=== PATIENT | female | born 1940 | race Caucasian/White ===

== ENCOUNTER → 2024-06-16 10:01 | Outpatient (REF) | payer MEDICARE, OTHER, SELFPAY | LOC: RCS 10:01 | PROVIDERS: ATTENDING PHYSICIAN Internal Medicine Cardiovascular Disease; FAMILY PHYSICIAN Internal Medicine Geriatric Medicine | DX: I48.91 Unspecified atrial fibrillation (principal); I48.0 Paroxysmal atrial fibrillation; R07.9 Chest pain, unspecified; R06.02 Shortness of breath | CPT/HCPCS: 93306 ==

== ENCOUNTER → 2024-06-27 07:39 | Outpatient (REF) | payer MEDICARE, OTHER, SELFPAY | LOC: HWRCS 07:39 | PROVIDERS: ATTENDING PHYSICIAN Internal Medicine Cardiovascular Disease; FAMILY PHYSICIAN Internal Medicine Geriatric Medicine | DX: J98.4 Other disorders of lung (principal); I25.10 Atherosclerotic heart disease of native coronary artery without angina pectoris; R07.9 Chest pain, unspecified | CPT/HCPCS: 78452; 93017; A9500; J2785 ==

== ENCOUNTER 2024-11-26 13:26 | Emergency (ER) | payer MEDICARE, OTHER, SELFPAY ==
[2024-11-26 13:29] VITALS: BP 141/76
[2024-11-26] MEDS: ADACEL 0.5 ML IM (15:38)
[2024-11-26] MEDS: VIBRAMYCIN 100 MG PO (15:38)
--- NOTE | 2024-11-26 16:52 | ED.GENMED ---
History of Present Illness
General
Chief Complaint: Skin Problem
Source: patient
Exam Limitations: none
Time Seen by Provider: 11/26/24 13:40
Nursing documentation reviewed up to this point in time: agreed with
History of Present Illness
History of Present Illness:
see MDM
Past History
Past History
ED Past Medical History: Arrthythmia, COPD, HTN, Hypercholesterolemia and Other (asthmatic bronchitis)
Social History
Tobacco: Former smoker
Alcohol: None
Drug: None
Personal: Single
Review of Systems
Review of Systems
Allergies reviewed?: Yes
All Other Systems: Not applicable
Phy Exam
Physical Exam
Physical Exam:
GENERAL: Alert , in no apparent distress, comfortable at rest
HEAD: NCAT
CV: 2+ DP pulses
NEUROLOGICAL: Alert and oriented, no focal neuro deficits, , 5/5 strength, sensation intact, ambulation slight limp right leg
SKIN: Warm and dry,
irregular shaped long skin tear to R anterior mid lower leg approx 12 cm long with small hematoma int he center of the wound on the medial edge and otherwise it is not well approxmiated but superficial
there is surrounding erythema down to ankle and above the wound toward the prox tib but not posteriorly(not circumferentially)
MUSCULOSKELETAL: full nakle and knee ROM
tender to touch to the anterior RLE; able to walk normally;
PSYCH: Normal and appropriate interaction.
Course
Orders/Labs/Results
Orders:
Orders
11/26/24 14:25
CR Leg Tibia/fibula Right 2 Vw Urgent
Comment:
Reason For Exam: right LE wound, fall
11/26/24 15:28
Doxycycline [Vibramycin] 100 mg PO NOW STA
Tetanus/Diphth/Acelpertussis [Adacel] 0.5 ml IM .ONCE ONE
Vital Signs
Initial and Last Documented VS:
Initial Vital Signs
Temp Pulse Resp BP Pulse Ox
36.7 C 114 18 141/76 96
11/26/24 13:29 11/26/24 13:29 11/26/24 13:29 11/26/24 13:11/26/24 13:29
Last Documented Vital Signs
Temp Pulse Resp BP Pulse Ox
36.7 C 89 18 141/76 96
11/26/24 13:29 11/26/24 15:01 11/26/24 14:03 11/26/24 13:29 11/26/24 15:01
MDM/Problems Addressed
Differential Diagnosis Includes:
see MDM
MDM/Problems Addressed:
Note:
CHIEF COMPLAINT(S)
Concern about puckering and healing of a leg wound.
HISTORY OF PRESENT ILLNESS
The patient presented with concerns regarding the appearance and healing process of a wound on the leg. The injury occurred on 3 days ago when the patient fell while pushing a grocery cart. During the fall, boxes in the cart shifted, causing it to
tip over, and the patient fell, impacting the curb. she had wound to RLE anteriorly that was a skin tear; The patient initially managed the wound with compression and application of a sterile iodine swab. The wound is described as tender and has
minimal discomfort, similar to plantar fasciitis, especially after being seated or in the morning. Despite the injury being several days old, and featuring prominence and discoloration, the patient expressed concern about the puckering of the skin
around the wound. There are no major signs of pain, just mild tenderness upon movement.
PHYSICAL EXAM
see above
- Nursing notes reviewed and vital signs reviewed.
PLAN
- Order an X-ray to assess the underlying bone structure due to tenderness.
- Initiate antibiotic treatment to prevent or address any potential infection.
- Referral to a wound care center for specialized management and to facilitate healing.
DIFFERENTIAL DIAGNOSIS
The Differential Diagnosis includes, in no particular order and is not limited to:
1. Contusion with edema
2. Skin infection (Cellulitis)
3. Superficial wound infection
4. Venous stasis dermatitis
5. Hematoma
6. Fracture or bone injury (requiring X-ray confirmation)
7. Complicated wound healing
8. Tendon injury or strain
9. Subcutaneous fat necrosis
10. Ligament strain due to fall
84-year-old female after a mechanical fall with a skin tear to her right lower extremity 3 to 4 days ago now with redness around the wound and some puckering to the skin flap which is open and there is a small hematoma in the center but it is dry
not using. The skin tear was gaping But because her skin was so thin she decided not to come in. The bleeding has been controlled. She has been providing herself her own wound care at home.
pt is able to weight bear
tetanus not known but updated here
xrays were indep reviewed, neg fo rfx
with the redness, will initiate abx
wound care center recommended for f/u for better wound healing
*Pulse Oximetry
SaO2: 96
Oxygen Mode of Delivery: Room air
Patient hypoxic: no (96)
*Critical Care Note
Total Time (30-74mins, 75-104mins- exclusive of procedures): Not Applicable
ED Attending Note
-
Portions of this chart may have been created with voice recognition software.� Occasional wrong word or��sound alike� substitutions may have occurred due to the inherent limitations of voice recognition software.
Discharge Plan
Departure
Patient Disposition: Home (Routine Discharge)
Date of Disposition: 11/26/24
Time of Disposition: 15:28
Patient with high blood pressure during this ER visit?: Yes
Condition: Fair
Covid-19: Not Applicable
Discharge Problem:
Cellulitis
Instructions: Wound Care (DC), Cellulitis (skin infection) in adults - ED discharge instructions
Prescriptions:
New
doxycycline hyclate 100 mg capsule
100 mg PO BID Qty: 14 0RF
No Action
cyanocobalamin (vitamin B-12) 1,000 MCG tablet
1,000 mcg PO DAILY
montelukast 10 MG tablet
10 mg PO DAILY
cholecalciferol (vitamin D3) [Vitamin D3] 400 UNITS tablet
1,000 units PO DAILY
cyclosporine [Restasis] 10 DROPS dropperette
1 drp BOTH EYES BID
ProAir RespiClick 90 MCG aerosol powdr breath activated
1 puff IH PRN PRN (Reason: shortness of breath)
biotin 1,000 MCG tablet,chewable
1,000 mcg PO DAILY
irbesartan 150 MG tablet
150 mg PO HS 0RF
levalbuterol HCl [Xopenex] 0.63 mg/3 mL Solution For Nebulization
0.63 mg INHALATION PRN PRN (Reason: SOB, Wheezing)
simvastatin 10 mg Tablet
10 mg PO DAILY
loratadine 10 mg Tablet
10 mg PO DAILY
diltiazem HCl 120 mg Tablet Extended Release 24 Hr
120 mg PO DAILY
Eliquis 5 mg Tablet
5 mg PO BID
Flovent HFA
BID
magnesium 250 mg Tablet
250 mg PO DAILY
melatonin 5 mg Tablet
5 mg PO HS PRN (Reason: sleep)
PreserVision AREDS-2 250-90-40-1 mg Capsule
1 cap PO DAILY
Referrals:
Luiza Hazel MD [Family Provider, Internal Medicine]
[facility] - Follow up in 5-7 days
Activity Restrictions/Additional Instructions:
Change the dressing once a day after cleaning with mild soap and water. Apply Neosporin and a nonstick dressing. Take doxycycline twice a day for 7 days and watch for extension of the redness outside of the line drawn and if that is happening you
should follow-up with your doctor or return to the emergency department. Also return for fever, chills, worsening pain inability to walk, vomiting or diarrhea etc. Otherwise please call the wound care center for follow-up to help with healing.
Your x-ray did not show any signs of trauma to the bone
Interventions
Interventions:
*Risk Screen - Suicide Last Done: 11/26/24 13:29
*General Assessment Last Done: 11/26/24 13:29
*Neglect/Abuse Screening Last Done: 11/26/24 13:29
*ED- Fall Risk Assessment Last Done: 11/26/24 15:59
*ED COVID-19 Vaccine History Last Done: 11/26/24 13:35
*Nursing Disposition Last Done: 11/26/24 15:59
ED-Skin Assessment Last Done: 11/26/24 13:40
Discharge Date and Time
Discharge Date/Time: 11/26/24 15:59
Print Language: LAO
== END 2024-11-26 15:59 | disposition home or self-care (01) ==
LOC: EMR 13:26
PROVIDERS: EMERGENCY PHYSICIAN Emergency Medicine; FAMILY PHYSICIAN Internal Medicine Geriatric Medicine
DX: L03.115 Cellulitis of right lower limb (principal); Z23 Encounter for immunization; J44.89 Other specified chronic obstructive pulmonary disease; I10 Essential (primary) hypertension; E78.00 Pure hypercholesterolemia, unspecified; Z87.891 Personal history of nicotine dependence
CPT/HCPCS: 99283; 90471; 73590; 90715

== ENCOUNTER → 2024-11-28 12:29 | Outpatient (REF) | payer MEDICARE, OTHER, SELFPAY | LOC: WOUND 12:29 | PROVIDERS: ATTENDING PHYSICIAN Surgery | DX: L97.213 Non-pressure chronic ulcer of right calf with necrosis of muscle (principal); S81.811A Laceration without foreign body, right lower leg, initial encounter; I48.91 Unspecified atrial fibrillation; Z79.01 Long term (current) use of anticoagulants; Z87.891 Personal history of nicotine dependence; W01.198A Fall on same level from slipping, tripping and stumbling with subsequent striking against other object, initial encounter | CPT/HCPCS: 99203 ==

== ENCOUNTER 2024-12-05 14:10 | Inpatient (IN) | payer MEDICARE, OTHER, SELFPAY ==
[2024-12-05 09:48] VITALS: BP 137/69
[2024-12-05 10:10] LABS: Hematocrit 32.3 % (37.0-47.0); Hemoglobin 10.4 g/dL (12.0-16.0); Mean Corp Hgb Conc. 32.2 g/dL (33.0-37.0); Mean Corpuscular Volume 89.2 fL (81.0-99.0); Nucleated Red Blood Cells % 0 %; Platelet Count 182 10^3/uL (130-400); Red Cell Dist. Width 14.6 % (11.5-14.5)
[2024-12-05 10:30] LABS: ALT (SGPT) 23 U/L (0-35); AST (SGOT) 28 U/L (14-36); Albumin 4.1 g/dl (3.5-5.0); Alkaline Phosphatase 83 U/L (38-126); Blood Urea Nitrogen 23 mg/dl (7-17); Calcium 9.1 mg/dl (8.4-10.2); Carbon Dioxide 23 mmol/L (22-30); Chloride 109 mmol/L (98-107); Potassium 4.8 mmol/L (3.5-5.1); Sodium 139 mmol/L (135-145); Total Protein 7.1 g/dl (6.3-8.2); eGFR > 60.00
[2024-12-05 10:36] LABS: Glucose 126 mg/dl (70-99)
[2024-12-05 12:07] VITALS: BMI 23.8
--- NOTE | 2024-12-05 12:52 | ED.GENMED ---
History of Present Illness
General
Chief Complaint: Skin Problem
Source: patient
Exam Limitations: none
Time Seen by Provider: 12/05/24 11:40
Nursing documentation reviewed up to this point in time: agreed with
History of Present Illness
History of Present Illness:
Patient is an 84-year-old female with past medical history of A-fib on Eliquis, DVT asthma sent to the ER for evaluation from wound care. Patient was seen here 9 days ago November 26 for wound to right lower extremity. She was diagnosed with
cellulitis and placed on doxycycline. She complains of increasing redness to the area. She has been managed also by wound care. She had an appointment today and they sent her to the ER for evaluation of cellulitis with worsening redness. In
addition to the redness she complains of increasing swelling. Denies any fever/chills.
She is on eliquis however has not missed a dose.
Past History
Past History
ED Past Medical History: Arrthythmia, COPD, HTN, Hypercholesterolemia and Other (asthmatic bronchitis)
Social History
Tobacco: Former smoker
Alcohol: None
Drug: None
Personal: Single
Phy Exam
General Physical Exam
General Presentation: no apparent distress
General age: appears stated age
General Skin: warm and dry
General Habitus: normal
General Mental: alert
General Hydration: appears well hydrated
Neurological Exam
Neurological Exam: alert and oriented x3
Musculoskeletal Exam
Musculoskeletal Exam: other (right lower leg with open wound to right lower leg full thickness to subcutaneous tissue with surrounding erythema to right lower leg with swelling )
Skin Exam
Skin Exam: normal color and warm/dry
Psychiatric Exam
Psychiatric Exam: normal mood/affect
Course
Orders/Labs/Results
Orders:
Orders
12/05/24 09:56
Complete Blood Count/With Diff Urgent
Comprehensive Metabolic Panel Urgent
Lactic Acid Q4H
Comment: ON ICE, CANCEL 2ND ORDER IF FIRST LACTIC ACID LEVEL <2
12/05/24 10:20
Blood Culture Q20M
PRAFUL Source: Blood/Venous
Specimen Description:
Comment: Urgent from separate sites. If patient screens positive for possible sepsis
12/05/24 11:59
Lactic Acid Q4H
Comment: ON ICE, CANCEL 2ND ORDER IF FIRST LACTIC ACID LEVEL <2
Blood Culture Q20M
PRAFUL Source: Blood/Venous
Specimen Description:
Comment: Urgent from separate sites. If patient screens positive for possible sepsis
12/05/24 13:27
Vancomycin [Vancocin] 1,500 mg 0.9% Sodium Chloride 500 ml [Nss] 500 ml IV NOW
12/05/24 13:46
Admit/Transfer Patient As Directed
Co-Sign Provider:
Level of Care: Inpatient admission
Assign to:: Medical/Surgical
Physician / Group: isaiah denny
Diagnosis: RLE cellulitis failure outpatient ABX
Reason for Hospitalization: RLE cellulitis failure outpatient ABX
Expected length of stay greater than two midnights?: Yes
ELOS- Estimated Length of Stay in days: 3
I certify the patient meets the requirements for IP care: Yes
Code Status As Directed
Resuscitation Status: Full Code
12/05/24 13:52
PRN Pain Medication Management As Directed
May give lesser potent ordered pain med per pt: Yes
preference::
Protocol:: Medication orders for pain may be administered in a
manner that supports deferring to patient preference
when the pt is:
- Requesting an ordered lesser potent pain medication.
Least to most potent pain medications are defined
as: acetaminophen < NSAID < tramadol < opioids
(morphine, oxycodone, hydromorphone).
- Requesting a lesser dose of the same medication IF
ORDERED.
- Requesting a less intrusive route of administration
if both routes are prescribed by the provider (PO <
IV).
12/05/24 14:00
Flush (0.9% Sodium Chloride) [Flush (Nss)] See Dose Instructions IV PER PROTOCOL
Abnormal Lab Results
12/05/24
09:56
RBC 3.62 L 10^6/uL
(4.20-5.40)
Hgb 10.4 L g/dL
(12.0-16.0)
Hct 32.3 L %
(37.0-47.0)
MCHC 32.2 L g/dL
(33.0-37.0)
RDW 14.6 H %
(11.5-14.5)
MPV 10.6 H fL
(7.4-10.4)
Absolute Lymphs (auto) 0.9 L 10^3/uL
(1.2-3.4)
Lymphocytes % 11.4 L %
(20.5-51.1)
Chloride 109 H mmol/L
(98-107)
BUN 23 H mg/dl
(7-17)
Glucose 126 H mg/dl
(70-99)
12/05/24 09:56
12/05/24 09:56
Vital Signs
Initial and Last Documented VS:
Initial Vital Signs
Temp Pulse Resp BP Pulse Ox
98.0 F 97 18 137/69 98
12/05/24 09:48 12/05/24 09:48 12/05/24 09:48 12/05/24 09:48 12/05/24 09:48
Last Documented Vital Signs
Temp Pulse Resp BP Pulse Ox
98.0 F 97 18 137/69 98
12/05/24 09:48 12/05/24 09:48 12/05/24 09:48 12/05/24 09:48 12/05/24 12:53
MDM/Problems Addressed
Differential Diagnosis Includes:
Not limited to cellulitis
MDM/Problems Addressed:
Will admit for cellulitis of right lower extremity with open wound, failed outpatient therapy on doxycycline. Patient is afebrile nontoxic. She does have some mild swelling however has not missed a dose of her Eliquis.
Chronic conditions affecting care:
A-fib on Eliquis
*Pulse Oximetry
SaO2: 98
Oxygen Mode of Delivery: Room air
Patient hypoxic: no
*Critical Care Note
Total Time (30-74mins, 75-104mins- exclusive of procedures): Not Applicable
ED Attending Note
-
Portions of this chart may have been created with voice recognition software.� Occasional wrong word or��sound alike� substitutions may have occurred due to the inherent limitations of voice recognition software.
Discharge Plan
Departure
Patient Disposition: Admit
Date of Disposition: 12/05/24
Time of Disposition: 13:13
Admit to: Med/Surg
Admit to doctor: hospitalist
Presentation/result/management discussed w/ accepting MD/DO: Hospitalist
Patient with high blood pressure during this ER visit?: No
Condition: Fair
Covid-19: Not Applicable
Discharge Problem:
Cellulitis of leg, right
Interventions
Interventions:
*Risk Screen - Suicide Last Done: 12/05/24 09:48
*Neglect/Abuse Screening Last Done: 12/05/24 09:48
--- NOTE | 2024-12-05 13:19 | HPS.HSE ---
Family Physician
-
Family Physician: Luiza Hazel
Chief Complaint
-
Right lower extremity cellulitis
History of Present Illness
84-year-old female sent to ER by wound care for evaluation of nonhealing wound to the right lower extremity with surrounding cellulitis. She was seen in the ER November 26 9 days ago for a trip and fall scraping her right lower extremity on the
curb. She was placed on doxycycline however has had increased redness with edema to her right lower extremity. She was applying Polysporin to the wound. She denies fever, chills, chest pain, palpitations, cough, shortness of breath, abdominal
pain, nausea, vomiting, diarrhea, urinary symptoms. She has past medical history of A-fib on Eliquis, HTN, HLD, COPD, asthmatic bronchitis, former smoker, B12 deficiency, insomnia,Neuropathy, Osteoarthritis, Diverticulosis
Medical History
Past Medical History
Past Medical History: Reports Other
Additional Past Medical History:
A-fib on Eliquis
HTN
HLD
COPD
asthmatic bronchitis
former smoker
B12 deficiency
insomnia
Neuropathy
Osteoarthritis
Diverticulosis
Past Surgical History: Reports Other
Additional Past Surgical History:
Ulnar nerve repair right hand July 2017
Frenulectomy 03 May 2013
Left knee replacement January 2012
Laminectomy April 2009
Mohs 2007
Bilateral cataract extraction with lens implants 2003
Bilateral CTR 2003
Blepharoplasty
Endometriosis removal
Appendectomy
01/23/2021 A-fib ablation
Social History
Tobacco: Former Smoker (Quit 1962)
Alcohol: Occasional
Drug: None
Personal:
Living: Alone ([facility] independent)
Employment: Retired
Family History
Family History: Not pertinent
Allergies / Home Medications
Allergies reflects when Allergies were last updated in [employer].
Home Medications with original date entered in [employer]
Allergy/Medication List:
Allergies
Allergy/AdvReac Type Severity Reaction Status Date / Time
adhesive Allergy Redness Verified 12/05/24 09:48
fluticasone furoate (From Allergy Hives Verified 12/05/24 09:48
Trelegy Ellipta)
NSAIDS (Non-Steroidal Allergy Severe Verified 12/05/24 09:48
Anti-Inflamma neutropenia
Sulfa (Sulfonamide Allergy Severe Verified 12/05/24 09:48
Antibiotics) neutropenia
Home Medications
cholecalciferol (vitamin D3) 10 mcg (400 unit) tablet (Vitamin D3) 1,000 units PO DAILY 01/13/21
cyanocobalamin (vitamin B-12) 1,000 mcg tablet 1,000 mcg PO DAILY 01/13/21
cyclosporine 0.05 % eye drops in a dropperette (Restasis) 1 drp BOTH EYES BID 01/13/21
montelukast 10 mg tablet 10 mg PO QPM 01/13/21
irbesartan 150 mg tablet 150 mg PO HS 01/24/21
apixaban 5 mg tablet (Eliquis) 5 mg PO BID 03/24/22
diltiazem HCl 120 mg tablet,extended release 24 hr 120 mg PO DAILY 03/24/22
vit C 250 mg-vit E 90 mg-zinc 40 mg-copper 1 [id number]-[id number] capsule (PreserVision AREDS-2) 1 cap PO BID 04/06/22
albuterol 90 mcg-budesonide 80 mcg/actuation HFA aerosol inhaler (Airsupra) 2 inh inhalation R Q6HPRN PRN sob 12/05/24
biotin 2,500 mcg capsule 5,000 mcg PO DAILY 12/05/24
dupilumab 300 mg/2 mL subcutaneous syringe (Dupixent) 300 mg SC Q2W 12/05/24
fluticasone fur. 200 mcg-umeclid 62.5 mcg-vilant 25 mcg inhalat.powder (Trelegy Ellipta) 1 inh inhalation R DAILY 12/05/24
Review of Systems
-
History Source: Patient
A 12 point ROS was completed and negative except as noted: Yes
Constitutional: Denies Fever or Chills
EENT: Denies Sore Throat or Runny Nose
Respiratory: Denies Cough or Trouble Breathing
Cardiac: Denies Chest Pain, Diaphoresis, Palpitations or Syncope
Abdomen/GI: Denies Abdominal Pain, Nausea, Vomiting or Diarrhea
: Denies Dysuria, Frequency or Incontinence
Musculoskeletal: Reports Edema (+3 right lower extremity pedal edema, + right lower extremity edema with surrounding circumferential erythema below the knee to the foot, anterior martinez abrasion 9 days old); Denies Joint Pain
Skin: Denies Itching
Neurological: Denies Dizzy or Headache
Endocrine: Reports No Symptoms
Hematologic/Lymphatic: Reports No Symptoms
Psych: Reports Calm
Physical Exam
Vital Signs
Vital Signs
Temp Pulse Resp BP Pulse Ox
98.0 F 97 18 137/69 98
12/05/24 09:48 12/05/24 09:48 12/05/24 09:48 12/05/24 09:48 12/05/24 12:53
Physical Exam
General: Conversant; No Pain, Fever or Chills
HEENT: NormoCephalic, Anicteric, Moist mucous membranes, PERRLA, [place] Conjunctivae and No Ptosis
Respiratory: Clear; No Wheezes, Rales or Rhonchi
Cardiac: S1/S2, Regular Rhythm and Peripheral Edema (+3 right lower extremity pedal edema, + right lower extremity edema with surrounding circumferential erythema below the knee to the foot, anterior martinez abrasion 9 days old); No Murmur, Rub or
Gallop
GI: Soft, Non Tender, Non Distended, Normal Bowel Sounds and No Hepatosplenomegaly
Rectal: Deferred by Provider
Genito-urinary: Deferred by me
Musculoskeletal: No Clubbing, No Cyanosis and Edema, Right Lower Extremity (+3 right lower extremity pedal edema, + right lower extremity edema with surrounding circumferential erythema below the knee to the foot, anterior martinez abrasion 9 days old);
No Edema, Left Upper Extremity, Edema, Right Upper Extremity or Edema, Left Lower Extremity
Skin: Warm; No Dry
Neuro: AO x 3, No Motor Deficits, Nonfocal/grossly intact, Cranial Nerves Intact and No Sensory Deficits; No Slurred Speech, Facial Droop, Tremors or Sedated
Psych: Calm
Laboratory Results
-
12/05/24 09:56
12/05/24 09:56
Laboratory Results
Lactic Acid 1.3 mmol/L (0.7-2.0) 12/05/24 11:59
Total Bilirubin 0.8 mg/dl (0.2-1.3) 12/05/24 09:56
AST 28 U/L (14-36) 12/05/24 09:56
ALT 23 U/L (0-35) 12/05/24 09:56
Alkaline Phosphatase 83 U/L (38-126) 12/05/24 09:56
Data Reviewed
-
Lab Data: Labs Reviewed by me
Impression/Plan
-
Impression/plan:
Admit to [facility]
#Right lower extremity cellulitis failure outpatient ABX
Patient completed 7-day course doxycycline with failure
- IV vancomycin given in ER
-Low suspicion for MRSA will give IV Ancef
- Tylenol as needed
- PT/case management consult
#A-fib�paroxysmal
- Continue Eliquis, diltiazem
#HTN
BP 137/69
Continue diltiazem, irbesartan
#HLD
Continue simvastatin
#Normocytic anemia
#History of B12 deficiency
Hgb 10.4, MCV 89.2
Continue B12 supplement
#COPD�no acute exacerbation
- Continue Flovent, Singulair 10 mg daily
#History of asthmatic bronchitis no acute exacerbation
- Patient received Dupixent 300 mg SQ every 2 weeks
#Insomnia
- Continue melatonin
Other PMH:
Neuropathy
Osteoarthritis
Diverticulosis
DVT prophylaxis
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
Full code
[2024-12-05] MEDS: VANCOCIN 530 MG IV (13:43)
--- NOTE | 2024-12-05 14:08 | W.PN.UPDATE ---
Update Note
Progress Note Update
This is an addendum to H&P written by Valarie Servin on 12/05/2024. �Patient seen and examined independently with PLUG STITCHER.
84-year-old female past medical history of paroxysmal atrial fibrillation on Eliquis, hypertension, hyperlipidemia, COPD, former smoker, B12 deficiency, insomnia, neuropathy, osteoarthritis, diverticulosis, presenting with trip and fall with walker
sustaining abrasion of right lower extremity martinez. �Came to ER next day on 11/26 and given doxycycline without improvement. �Followed wound care and using Polysporin with worsening redness, edema below knee.
Vital signs normal. �Labs unremarkable.
Patient given vancomycin in the ER.� Switch to Cefazolin.�
[2024-12-05 15:19] VITALS: BP 114/57
[2024-12-05 17:46] VITALS: BMI 25.7
[2024-12-05 18:09] VITALS: BP 132/71
[2024-12-05] MEDS: SINGULAIR 10 MG PO (18:10)
[2024-12-05] MEDS: ANCEF 5 IV (18:11)
[2024-12-05 18:22] VITALS: BMI 25.7
[2024-12-05] MEDS: SYMBICORT 160/4.5 MCG INHALER 2 PUFF INH (19:18)
[2024-12-05] MEDS: ELIQUIS 5 MG PO (20:25)
[2024-12-05] MEDS: RESTASIS 0.05% OPHTHALMIC EMULSION 1 DROPS BOTH EYES (20:26)
[2024-12-05] MEDS: OCUVITE SOFTGEL PO (20:31)
[2024-12-05] MEDS: TYLENOL 650 MG PO (21:32)
[2024-12-05] MEDS: AVAPRO 150 MG PO (21:33)
[2024-12-05] MEDS: LIPITOR 20 MG PO (21:33)
[2024-12-05 23:23] VITALS: BP 99/55
[2024-12-06] MEDS: ANCEF 5 IV ×2 (01:02→09:41)
[2024-12-06] MEDS: TYLENOL 650 MG PO ×3 (03:56→21:25)
[2024-12-06 07:19] VITALS: BP 138/76
[2024-12-06 07:41] LABS: Hematocrit 30.0 % (37.0-47.0); Hemoglobin 9.8 g/dL (12.0-16.0); Mean Corp Hgb Conc. 32.7 g/dL (33.0-37.0); Mean Corpuscular Volume 88.2 fL (81.0-99.0); Nucleated Red Blood Cells % 0 %; Platelet Count 166 10^3/uL (130-400); Red Cell Dist. Width 14.6 % (11.5-14.5)
[2024-12-06] MEDS: SPIRIVA RESPIMAT 2.5 MCG 2 PUFF INH (08:01)
[2024-12-06] MEDS: SYMBICORT 160/4.5 MCG INHALER 2 PUFF INH ×2 (08:01→19:19)
--- NOTE | 2024-12-06 08:02 | W.PN.HOSP.TC ---
Today's Communication/Plan
-
Continue antibiotics
Wound care
Appreciate ID
Assessment / Plan
Assessment / Plan
Physical Exam
General: Not in acute distress
HEENT: Normocephalic, Moist mucous membranes
Respiratory: Clear to Auscultation Bilaterally
Cardiac: S1/S2, Regular Rhythm and Peripheral Edema (+3 right lower extremity pedal edema, + right lower extremity edema with surrounding circumferential erythema below the knee to the foot, anterior martinez abrasion)
GI: Soft, Non Tender, Non Distended, Normal Bowel Sounds
Musculoskeletal: No Cyanosis and Edema, Right Lower Extremity (+3 right lower extremity pedal edema, + right lower extremity edema with surrounding circumferential erythema below the knee to the foot, anterior martinez abrasion)
Skin: Warm; No Dry
Neuro: AO x 3, No Motor Deficits, Nonfocal/grossly intact, Cranial Nerves Intact and No Sensory Deficits
Psych: Calm
Assessment/Plan
84-year-old female with past medical history of paroxysmal A-fib on Eliquis, hypertension, hyperlipidemia, COPD, asthmatic bronchitis, former smoker, B12 deficiency, insomnia,Neuropathy, Osteoarthritis and Diverticulosis sent to ER by wound care for
evaluation of nonhealing wound to the right lower extremity with surrounding cellulitis. She was seen in the ER November 26 (~9 days prior to presentation) for a trip and fall scraping her right lower extremity on the curb. She was placed on
doxycycline however has had increased redness with edema to her right lower extremity. She was applying Polysporin to the wound. She denied fever, chills, chest pain, palpitations, cough, shortness of breath, abdominal pain, nausea, vomiting,
diarrhea, urinary symptoms.
#Right lower extremity cellulitis failure outpatient ABX
- Patient completed 7-day course doxycycline with failure
- IV vancomycin given in ER
- Low suspicion for MRSA -- so Vancomycin discontinued and IV Ancef later started
- Appreciate ID evaluation given the nature of the wound
- Tylenol as needed
- PT/case management consult
#A-fib�paroxysmal
- Continue Eliquis, diltiazem
#HTN
BP 137/69
Continue diltiazem, irbesartan
#HLD
Continue simvastatin
#Normocytic anemia
#History of B12 deficiency
Hgb 10.4, MCV 89.2
Continue B12 supplement
#COPD�no acute exacerbation
- Continue Flovent, Singulair 10 mg daily
#History of asthmatic bronchitis no acute exacerbation
- Patient received Dupixent 300 mg SQ every 2 weeks
#Insomnia
- Continue melatonin
Other PMH:
Neuropathy
Osteoarthritis
Diverticulosis
DVT prophylaxis
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
Full code
Anticipated Discharge: 24 - 48 hours
Subjective/Interval History
-
Date of Service: December 06, 2024
Patient was seen and examined. She denied any new symptoms or complaints.
Objective Data
-
Labs:
Laboratory Results
12/06/24
07:33
WBC 6.6
Hgb 9.8 L
Hct 30.0 L
Plt Count 166
Sodium Pending
Potassium Pending
Chloride Pending
Carbon Dioxide Pending
BUN Pending
Creatinine Pending
Glucose Pending
Calcium Pending
Vital Signs:
Vital Signs
Temp Pulse Resp BP Pulse Ox
98.3 F 93 18 99/55 97
12/05/24 23:23 12/05/24 23:23 12/05/24 23:23 12/05/24 23:23 12/05/24 23:23
I&O
12/05/24 12/06/24 12/07/24
06:59 06:59 06:59
Intake Total 480 / 480
Balance 480 / 480
[2024-12-06 08:54] VITALS: BP 139/74; PULSE 94; O2SAT 97
[2024-12-06 09:02] LABS: Blood Urea Nitrogen 15 mg/dl (7-17); Calcium 8.7 mg/dl (8.4-10.2); Carbon Dioxide 24 mmol/L (22-30); Chloride 108 mmol/L (98-107); Estimated Creatinine Clearance 52 ml/min; Glucose 90 mg/dl (70-99); Potassium 4.3 mmol/L (3.5-5.1); Sodium 138 mmol/L (135-145); eGFR > 60.00
[2024-12-06] MEDS: CARDIZEM CD 120 MG PO (09:18)
[2024-12-06] MEDS: OCUVITE SOFTGEL 1 CAP PO ×2 (09:19→19:10)
[2024-12-06] MEDS: VITAMIN D3 (cholecalciferol) 25 MCG PO (09:19)
[2024-12-06] MEDS: ELIQUIS 5 MG PO ×2 (09:19→19:09)
[2024-12-06] MEDS: RESTASIS 0.05% OPHTHALMIC EMULSION 1 DROPS BOTH EYES ×2 (09:20→19:10)
[2024-12-06] MEDS: VITAMIN B-12 1000 MCG PO (09:34)
--- NOTE | 2024-12-06 09:52 | CM ---
Addendum entered by Kesha Shukla 12/06/24 10:16:
PCP: Luiza Hazel
RX: [facility] at [facility]
Original Note:
Chart reviewed. Met pt at bedside. Lives alone in an apartment at [facility]. Hx of acute rehab after knee surgery. Doesn't remember name of facility (not [facility]).Hx of VN 15 years ago after back surgery. Uses Single point cane for outside
ambulation only. Has a walker and grab bars at home. Confirmed PCP, Rx, insurance and drug coverage. On IV ABXs.
Plan: Return home. Will follow for additional D/C needs
--- NOTE | 2024-12-06 11:55 | WOUNDNOTE ---
RIGHT ANTERIOR LOWER LEG
--- NOTE | 2024-12-06 11:55 | WOUNDNOTE ---
BILATERAL LOWER LEGS
--- NOTE | 2024-12-06 11:56 | WOUNDNOTE ---
[facility] RN note: Patient admitted with cellulitis of R leg.
See H&P for complete history.
PMH: Patient is an 84-year-old female with past medical history of A-fib on Eliquis, DVT asthma sent to the ER for evaluation from wound care. Patient was seen here 9 days ago November 26 for wound to right lower extremity. She was diagnosed with
cellulitis and placed on doxycycline.
Wound Location and type/assessment: Patient admitted with: r leg healing trauma wound, sent from wound care center. Reviewed current wound care with BRUNO Camacho, using mupirocin, wound cultures pending. Today wound bed with mostly eschar brown and
segura, scant drainage. 2+ edema foot to below knee, + palpable pedal pulses. Patient turns self, sacrum and heels are intact.
Appetite: Good, encouraged protein in diet.
Pressure redistribution devices in place: Accumax, patient is ad kiya. Pillow under calves.
Plan: Will order Santyl and local wound care with steven wrap daily.
Will confirm orders with hospitalist and updated nurse.
Updated care plan and will follow as needed.
Note to case management of equipment requested for discharge: none
Recommend follow up at wound care center upon discharge.
[2024-12-06 15:20] VITALS: BP 126/66
--- NOTE | 2024-12-06 16:19 | CON.ID ---
Consultation
-
Date/Time Consultation Requested: 12/06/2024 1451
Date/Time Consultation Performed: 12/06/2024 1619
Requesting Provider: Dr. Rosas
Performing Provider: Dr. Mueller
Reason for Consultation: Right lower extremity wound
Chief Complaint / Past History
History of Present Illness
Sheeba Sheriff is an 84-year-old female being evaluated at the request of Dr. Thompson in regards to right lower extremity wound. History is obtained from chart review, along with patient interview.
The patient initially presented to [facility] on 11/26/2024 and evaluation of a right lower extremity wound secondary to injury occurring 3 days prior. According to reviewed history, the patient fell while she was pushing a grocery cart.
During the fall, boxes and the cart shifted causing it to tipped over. The patient impacted the curve and she struck her right lower extremity. She was discharged to home, on a course of doxycycline 100 mg twice a day.
She presents back to the ER on 12/05 secondary to increasing redness and swelling of the area. She had been evaluated by Wound Care, and sent to the ER for further evaluation. She denies fevers or chills. She notes discomfort in the leg, along
with swelling, but no specific pain.
Past History
Additional Past Medical History:
COPD
HTN
HLD
Asthmatic bronchitis
A-fib (on Eliquis)
Additional Past Surgical History:
Cardiac ablation
Allergy History:
adhesive Allergy (Verified 12/05/24 09:48)
Redness
fluticasone furoate (From Trelegy Ellipta) Allergy (Verified 12/05/24 09:48)
Hives
NSAIDS (Non-Steroidal Anti-Inflamma Allergy (Verified 12/05/24 09:48)
Severe neutropenia
Sulfa (Sulfonamide Antibiotics) Allergy (Verified 12/05/24 09:48)
Severe neutropenia
Medications Reviewed: Yes
Current Antibiotics:
Cefazolin 1 gm IV q.8 hours
Review of Systems
Vital Signs
Temp Pulse Resp BP Pulse Ox
98.6 F 88 16 126/66 95
12/06/24 15:20 12/06/24 15:20 12/06/24 15:20 12/06/24 15:20 12/06/24 15:20
Physical Exam
Physical Exam
Constitutional: No Acute Distress, Comfortable and Non-toxic
Eyes: No Conjunctival Hemorrhage and Sclera Anicteric
Oral: No Thrush and No Ulcers
Cardiovascular: Regular Rate and S1/S2; Negative S3/S4
Pulmonary: Clear; Negative Wheezes, Rales or Rhonchi
Gastrointestinal: Soft, Non Tender and Non Distended
Extremities: Other (Right lower extremity with edema and erythema from the mid calf to foot area. Anterior superficial skin tear/laceration noted.)
Musculoskeletal: Negative Joint Swelling
Skin: Warm and Dry
Neurological: Awake and Alert
Psychological: Calm
Lab / Diagnostic Study Results
12/06/24 07:33
12/06/24 07:33
Abs Immat Gran (auto) 0.0 10^3/uL (0-0.05) 12/06/24 07:33
Absolute Neuts (auto) 4.8 10^3/uL (1.4-6.5) 12/06/24 07:33
Absolute Lymphs (auto) 0.9 10^3/uL (1.2-3.4) L 12/06/24 07:33
Absolute Monos (auto) 0.5 10^3/uL (0.1-0.6) 12/06/24 07:33
Absolute Basos (auto) 0.1 10^3/uL (0-0.2) 12/06/24 07:33
Immature Gran % 0.6 % (0-0.5) H 12/06/24 07:33
Neutrophils % 72.4 % (42.2-75.2) 12/06/24 07:33
Lymphocytes % 13.2 % (20.5-51.1) L 12/06/24 07:33
Monocytes % 7.8 % (1.7-9.3) 12/06/24 07:33
Eosinophils % 4.9 % (0-6) 12/06/24 07:33
Basophils % 1.1 % (0-2) 12/06/24 07:33
Lactic Acid 1.3 mmol/L (0.7-2.0) 12/05/24 11:59
Microbiology Results
Micro:
12/05/24 11:59 Blood Culture - Preliminary
Blood/Venous No Growth in 24 hours- Final report to follow
12/06/24 10:42 MRSA Screen - Pending
Nose
12/06/24 07:33 Blood Culture - Pending
Blood/Venous
Assessment / Plan
Right lower extremity swelling.
Suspected right lower extremity cellulitis
Recent right lower extremity trauma to martinez secondary to fall.
COPD
HTN
HLD
Asthmatic bronchitis
A-fib (on Eliquis)
Recommendations:
Continue with local care to the wound. No noted purulence appreciated.
David wrap applied to the foot and lower extremity. Maintain elevation.
Continue cefazolin and follow-up for clinical improvement. May be able to transition to oral therapy in the next 24 to 48 hours.
[2024-12-06] MEDS: HYDROPHOR TOPICAL (16:49)
[2024-12-06] MEDS: SANTYL OINTMENT TOPICAL (16:50)
[2024-12-06] MEDS: ANCEF 10 IV (17:14)
[2024-12-06] MEDS: SINGULAIR 10 MG PO (17:14)
[2024-12-06] MEDS: LIPITOR 20 MG PO (17:14)
[2024-12-06] MEDS: AVAPRO 150 MG PO (21:23)
[2024-12-06 23:00] VITALS: BP 128/58
[2024-12-07] MEDS: TYLENOL 650 MG PO ×3 (01:46→20:40)
[2024-12-07] MEDS: ANCEF 10 IV ×3 (01:56→18:45)
[2024-12-07 07:57] LABS: Hematocrit 32.0 % (37.0-47.0); Hemoglobin 10.5 g/dL (12.0-16.0); Mean Corp Hgb Conc. 32.8 g/dL (33.0-37.0); Mean Corpuscular Volume 88.4 fL (81.0-99.0); Nucleated Red Blood Cells % 0 %; Platelet Count 186 10^3/uL (130-400); Red Cell Dist. Width 14.6 % (11.5-14.5)
[2024-12-07 08:00] VITALS: BP 144/76
[2024-12-07] MEDS: SPIRIVA RESPIMAT 2.5 MCG 2 PUFF INH (08:01)
[2024-12-07] MEDS: SYMBICORT 160/4.5 MCG INHALER 2 PUFF INH ×2 (08:02→19:58)
[2024-12-07] MEDS: ELIQUIS 5 MG PO ×2 (08:22→20:40)
[2024-12-07] MEDS: VITAMIN B-12 1000 MCG PO (08:22)
[2024-12-07] MEDS: CARDIZEM CD 120 MG PO (08:22)
[2024-12-07] MEDS: VITAMIN D3 (cholecalciferol) 25 MCG PO (08:22)
[2024-12-07] MEDS: RESTASIS 0.05% OPHTHALMIC EMULSION 1 DROPS BOTH EYES ×2 (08:23→20:40)
[2024-12-07] MEDS: HYDROPHOR 1 APPLIC TOPICAL (08:23)
[2024-12-07] MEDS: SANTYL OINTMENT 1 APPLIC TOPICAL (08:28)
[2024-12-07] MEDS: OCUVITE SOFTGEL 1 CAP PO ×2 (08:28→20:40)
[2024-12-07 09:32] LABS: Blood Urea Nitrogen 18 mg/dl (7-17); Calcium 9.4 mg/dl (8.4-10.2); Carbon Dioxide 26 mmol/L (22-30); Chloride 106 mmol/L (98-107); Estimated Creatinine Clearance 61 ml/min; Glucose 92 mg/dl (70-99); Magnesium 1.9 mg/dl (1.6-2.3); Potassium 4.7 mmol/L (3.5-5.1); Sodium 139 mmol/L (135-145); eGFR > 60.00
[2024-12-07] MEDS: FLUSH (NSS) 1 FLUSH IV ×3 (11:52→18:44)
--- NOTE | 2024-12-07 12:33 | CM ---
Cart reviewed. Met with Pt at bedside. Pt will transition to oral antibiotics at discharge. PT rec HH. CM spoke to Pranav [facility] CM ([place] [phone])and provided update, including PT rec for HH. and tentative d/c in 24-48hrs. CM agrees with HH
since pt wound was sustained after a fall at home. Referral made to [facility]
Plan:Home with HH. Choices for HH provide to pt; Pt chose PT by [facility].
--- NOTE | 2024-12-07 14:43 | W.PN.HOSP.TC ---
Today's Communication/Plan
-
See plan
Assessment / Plan
Assessment / Plan
Physical Exam
General: Not in acute distress
HEENT: Normocephalic, Moist mucous membranes
Respiratory: Clear to Auscultation Bilaterally
Cardiac: S1/S2, Regular Rhythm and Peripheral Edema (+3 right lower extremity pedal edema, + right lower extremity edema with surrounding circumferential erythema below the knee to the foot, anterior martinez abrasion)
GI: Soft, Non Tender, Non Distended, Normal Bowel Sounds
Musculoskeletal: No Cyanosis and Edema, Right Lower Extremity (+3 right lower extremity pedal edema, + right lower extremity edema with surrounding circumferential erythema below the knee to the foot, anterior martinez abrasion)
Skin: Warm; No Dry
Neuro: AO x 3, No Motor Deficits, Nonfocal/grossly intact, Cranial Nerves Intact and No Sensory Deficits
Psych: Calm
Assessment/Plan
84-year-old female with past medical history of paroxysmal A-fib on Eliquis, hypertension, hyperlipidemia, COPD, asthmatic bronchitis, former smoker, B12 deficiency, insomnia,Neuropathy, Osteoarthritis and Diverticulosis sent to ER by wound care for
evaluation of nonhealing wound to the right lower extremity with surrounding cellulitis. She was seen in the ER November 26 (~9 days prior to presentation) for a trip and fall scraping her right lower extremity on the curb. She was placed on
doxycycline however has had increased redness with edema to her right lower extremity. She was applying Polysporin to the wound. She denied fever, chills, chest pain, palpitations, cough, shortness of breath, abdominal pain, nausea, vomiting,
diarrhea, urinary symptoms.
#Right lower extremity cellulitis failure outpatient ABX
- Patient completed 7-day course doxycycline with failure
- IV vancomycin given in ER
- Low suspicion for MRSA -- so Vancomycin discontinued and and switched to IV Ancef
- Continue Ancef
- Appreciate ID evaluation given the nature of the wound
- Tylenol as needed
- PT/case management consult
#A-fib�paroxysmal
- Continue Eliquis, diltiazem
#HTN
BP 137/69
Continue diltiazem, irbesartan
#HLD
Continue simvastatin
#Normocytic anemia
#History of B12 deficiency
Hgb 10.4, MCV 89.2
Continue B12 supplement
#COPD�no acute exacerbation
- Continue Flovent, Singulair 10 mg daily
#History of asthmatic bronchitis no acute exacerbation
- Patient received Dupixent 300 mg SQ every 2 weeks
#Insomnia
- Continue melatonin
Other PMH:
Neuropathy
Osteoarthritis
Diverticulosis
DVT prophylaxis
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
Full code
Anticipated Discharge: 24 - 48 hours
Subjective/Interval History
-
Date of Service: December 07, 2024
Patient was seen and examined. She reported she thinks her leg is getting better. She denied any new symptoms or complaints.
Objective Data
-
Labs:
Laboratory Results
12/07/24
07:49
WBC 7.5
Hgb 10.5 L
Hct 32.0 L
Plt Count 186
Sodium 139
Potassium 4.7
Chloride 106
Carbon Dioxide 26
BUN 18 H
Creatinine 0.6
Glucose 92
Calcium 9.4
Vital Signs:
Vital Signs
Temp Pulse Resp BP Pulse Ox
97.7 F 89 16 144/76 97
12/07/24 08:00 12/07/24 08:05 12/07/24 08:05 12/07/24 08:00 12/07/24 08:05
I&O
12/06/24 12/07/24 12/08/24
06:59 06:59 06:59
Intake Total 480 / 480 1260 / 1260
Balance 480 / 480 1260 / 1260
[2024-12-07 16:07] VITALS: BP 134/74
--- NOTE | 2024-12-07 16:52 | W.PN.ID1 ---
Date of Service
Date of Service: December 07, 2024
Today's Communication
Continue antibiotics.
Assessment / Plan
Right lower extremity swelling.
Suspected right lower extremity cellulitis
Recent right lower extremity trauma to martinez secondary to fall.
COPD
HTN
HLD
Asthmatic bronchitis
A-fib (on Eliquis)
Recommendations:
Continue with local care to the wound. No noted purulence appreciated.
David wrap applied to the foot and lower extremity. Maintain elevation.
Continue cefazolin and follow-up for clinical improvement. Likely transition to oral therapy in the next 24 hours.
����������������������������������������������������������
Chief Complaint
-: Cellulitis
Subjective / Review of Systems
Review of Systems: No Fever and No Chills
Vital Signs / Physical Exam
Vital Signs
Vital Signs
Temp Pulse Resp BP Pulse Ox
98.2 F 86 16 134/74 95
12/07/24 16:07 12/07/24 16:07 12/07/24 16:07 12/07/24 16:07 12/07/24 16:07
Physical Exam
Constitutional: No Acute Distress, Comfortable, Chronically Ill and Non-toxic
Eyes: Sclera Anicteric
Pulmonary: Non Labored
Gastrointestinal: Non Distended
Extremities: Other (Marked improvement in right lower extremity edema and erythema. Wound on the anterior martinez area is stable.)
Neurological: Awake and Alert
Objective Data
Lab Data
Lab Results
12/07/24 07:49
12/07/24 07:49
Estimated Creat Clear 61 ml/min 12/07/24 07:49
Lactic Acid 1.3 mmol/L (0.7-2.0) 12/05/24 11:59
Total Bilirubin 0.8 mg/dl (0.2-1.3) 12/05/24 09:56
AST 28 U/L (14-36) 12/05/24 09:56
ALT 23 U/L (0-35) 12/05/24 09:56
Alkaline Phosphatase 83 U/L (38-126) 12/05/24 09:56
Most recent labs reviewed.
Micro Results:
12/06/24 10:42 MRSA Screen - Final
Nose No Methicillin Resistant Staphylococcus aureus isolated.
12/05/24 11:59 Blood Culture - Preliminary
Blood/Venous No Growth in 48 hours- Final report to follow
12/06/24 07:33 Blood Culture - Preliminary
Blood/Venous No Growth in 24 hours- Final report to follow
[2024-12-07] MEDS: LIPITOR 20 MG PO (18:08)
[2024-12-07] MEDS: SINGULAIR 10 MG PO (18:13)
[2024-12-07] MEDS: AVAPRO 150 MG PO (22:51)
[2024-12-07 23:00] VITALS: BP 117/66
[2024-12-07] MEDS: ULTRAM 25 MG PO (23:28)
[2024-12-08] MEDS: ANCEF 10 IV (01:58)
[2024-12-08] MEDS: TYLENOL 650 MG PO ×2 (02:53→09:22)
[2024-12-08 07:00] VITALS: BP 123/78
--- NOTE | 2024-12-08 07:14 | W.PN.HOSP.TC ---
Today's Communication/Plan
-
Discharge today
Assessment / Plan
Assessment / Plan
Physical Exam
General: Not in acute distress
HEENT: Normocephalic, Moist mucous membranes
Respiratory: Clear to Auscultation Bilaterally
Cardiac: S1/S2, Regular Rhythm and Peripheral Edema (+3 right lower extremity pedal edema, + right lower extremity edema with surrounding circumferential erythema below the knee to the foot, anterior martinez abrasion)
GI: Soft, Non Tender, Non Distended, Normal Bowel Sounds
Musculoskeletal: No Cyanosis and Edema, Right Lower Extremity (+3 right lower extremity pedal edema, + right lower extremity edema with surrounding circumferential erythema below the knee to the foot, anterior martinez abrasion)
Skin: Warm; No Dry
Neuro: AO x 3, No Motor Deficits, Nonfocal/grossly intact, Cranial Nerves Intact and No Sensory Deficits
Psych: Calm
Assessment/Plan
84-year-old female with past medical history of paroxysmal A-fib on Eliquis, hypertension, hyperlipidemia, COPD, asthmatic bronchitis, former smoker, B12 deficiency, insomnia,Neuropathy, Osteoarthritis and Diverticulosis sent to ER by wound care for
evaluation of nonhealing wound to the right lower extremity with surrounding cellulitis. She was seen in the ER November 26 (~9 days prior to presentation) for a trip and fall scraping her right lower extremity on the curb. She was placed on
doxycycline however has had increased redness with edema to her right lower extremity. She was applying Polysporin to the wound. She denied fever, chills, chest pain, palpitations, cough, shortness of breath, abdominal pain, nausea, vomiting,
diarrhea, urinary symptoms.
#Right lower extremity cellulitis failure outpatient ABX
- Patient completed 7-day course doxycycline with failure
- IV vancomycin given in ER
- Low suspicion for MRSA -- so Vancomycin discontinued and and switched to IV Ancef
- No need for Santyl right now. Cover wound with Adaptic and gauze dressing and wrapped with Emily. Apply David wrap to the foot and lower extremity. Would maintain 24 hours a day. Maintain elevation
when on the couch or in bed.
- Transition Ancef to Cephalexin 500 mg QID x 3 days.
- Appreciate ID evaluation given the nature of the wound
- Tylenol as needed
- PT/case management consult
#A-fib�paroxysmal
- Continue Eliquis, diltiazem
#HTN
BP 137/69
Continue diltiazem, irbesartan
#HLD
Continue simvastatin
#Normocytic anemia
#History of B12 deficiency
Hgb 10.4, MCV 89.2
Continue B12 supplement
#COPD�no acute exacerbation
- Continue Flovent, Singulair 10 mg daily
#History of asthmatic bronchitis no acute exacerbation
- Patient received Dupixent 300 mg SQ every 2 weeks
#Insomnia
- Continue melatonin
Other PMH:
Neuropathy
Osteoarthritis
Diverticulosis
DVT prophylaxis
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
Full code
More than 30 minutes spent in discharge including
Final examination of the patient
Summarizing hospital stay
Instructions for continuing care to all relevant caregivers
Preparation of discharge records, prescriptions, and referral forms
Total time spent (in minutes): 36
Anticipated Discharge: Today
Subjective/Interval History
-
Date of Service: December 08, 2024
Patient was seen and examined. She denied any new symptoms or complaints.
Objective Data
-
Labs:
Laboratory Results
12/08/24
06:00
WBC Pending
Hgb Pending
Hct Pending
Plt Count Pending
Sodium Pending
Potassium Pending
Chloride Pending
Carbon Dioxide Pending
BUN Pending
Creatinine Pending
Glucose Pending
Calcium Pending
Vital Signs:
Vital Signs
Temp Pulse Resp BP Pulse Ox
97.8 F 94 20 117/66 96
12/07/24 23:00 12/07/24 23:00 12/07/24 23:00 12/07/24 23:00 12/07/24 23:00
I&O
12/07/24 12/08/24 12/09/24
06:59 06:59 06:59
Intake Total 1260 / 1260 300 / 300
Balance 1260 / 1260 300 / 300
[2024-12-08] MEDS: SPIRIVA RESPIMAT 2.5 MCG 2 PUFF INH (08:01)
[2024-12-08] MEDS: SYMBICORT 160/4.5 MCG INHALER 2 PUFF INH (08:01)
[2024-12-08] MEDS: RESTASIS 0.05% OPHTHALMIC EMULSION 1 DROPS BOTH EYES (08:23)
[2024-12-08] MEDS: CARDIZEM CD 120 MG PO (08:23)
[2024-12-08] MEDS: VITAMIN B-12 1000 MCG PO (08:23)
[2024-12-08] MEDS: OCUVITE SOFTGEL 1 CAP PO (08:24)
[2024-12-08] MEDS: VITAMIN D3 (cholecalciferol) 25 MCG PO (08:24)
[2024-12-08] MEDS: ELIQUIS 5 MG PO (08:24)
[2024-12-08] MEDS: SANTYL OINTMENT 1 APPLIC TOPICAL (08:24)
[2024-12-08] MEDS: HYDROPHOR 1 APPLIC TOPICAL (08:25)
[2024-12-08 08:46] LABS: Hematocrit 31.8 % (37.0-47.0); Hemoglobin 10.2 g/dL (12.0-16.0); Mean Corp Hgb Conc. 32.1 g/dL (33.0-37.0); Mean Corpuscular Volume 90.3 fL (81.0-99.0); Nucleated Red Blood Cells % 0 %; Platelet Count 184 10^3/uL (130-400); Red Cell Dist. Width 14.6 % (11.5-14.5)
--- NOTE | 2024-12-08 08:57 | W.PN.ID1 ---
Date of Service
Date of Service: December 08, 2024
Today's Communication
Transition to oral cephalexin. Follow-up in the wound care clinic
Assessment / Plan
Right lower extremity swelling.
Suspected right lower extremity cellulitis; improved
Recent right lower extremity trauma to martinez secondary to fall.
COPD
HTN
HLD
Asthmatic bronchitis
A-fib (on Eliquis)
Recommendations:
No need for Santyl at present.
Cover wound with Adaptic and gauze dressing and wrapped with Emily.
Apply David wrap to the foot and lower extremity. Would maintain 24 hours a day. Maintain elevation when on the couch or in bed.
Transition to cephalexin 500 mg QID x 3 days.
����������������������������������������������������������
Chief Complaint
-: Cellulitis
Subjective / Review of Systems
Review of Systems: No Fever and No Chills
Vital Signs / Physical Exam
Vital Signs
Vital Signs
Temp Pulse Resp BP Pulse Ox
97.4 F 81 16 123/78 96
12/08/24 07:00 12/08/24 08:02 12/08/24 08:02 12/08/24 07:00 12/08/24 08:02
Physical Exam
Constitutional: No Acute Distress, Comfortable and Non-toxic
Eyes: Sclera Anicteric
Pulmonary: Non Labored
Gastrointestinal: Non Distended
Extremities: Other (Marked improvement in right lower extremity edema and erythema. )
Wound: Other (Wound on the anterior martinez area is stable with crust. No significant slough. No purulence or drainage.)
Neurological: Awake and Alert
Objective Data
Lab Data
Lab Results
12/08/24 08:29
Estimated Creat Clear 61 ml/min 12/07/24 07:49
Lactic Acid 1.3 mmol/L (0.7-2.0) 12/05/24 11:59
Total Bilirubin 0.8 mg/dl (0.2-1.3) 12/05/24 09:56
AST 28 U/L (14-36) 12/05/24 09:56
ALT 23 U/L (0-35) 12/05/24 09:56
Alkaline Phosphatase 83 U/L (38-126) 12/05/24 09:56
Most recent labs reviewed.
Micro Results:
12/06/24 07:33 Blood Culture - Preliminary
Blood/Venous No Growth in 48 hours- Final report to follow
12/06/24 10:42 MRSA Screen - Final
Nose No Methicillin Resistant Staphylococcus aureus isolated.
12/05/24 11:59 Blood Culture - Preliminary
Blood/Venous No Growth in 48 hours- Final report to follow
Care Review
Plan reviewed with: Physician (Hospitalist)
[2024-12-08 09:15] LABS: Blood Urea Nitrogen 19 mg/dl (7-17); Calcium 9.5 mg/dl (8.4-10.2); Carbon Dioxide 26 mmol/L (22-30); Chloride 106 mmol/L (98-107); Estimated Creatinine Clearance 52 ml/min; Glucose 90 mg/dl (70-99); Potassium 4.7 mmol/L (3.5-5.1); Sodium 139 mmol/L (135-145); eGFR > 60.00
--- NOTE | 2024-12-08 12:25 | CM ---
Addendum entered by Kesha Shukla 12/08/24 13:09:
IMM given and form placed on chart. Pt is ready for discharge from [facility]
Original Note:
Reviewed chart. Met with pt at bedside. Pt is discharged with Home Health provided by Pr[facility] Tar[facility]. Pt will have friend come to take her home. Plans to go back to wound care center. PROSPER with Rhonda ([phone]) at [facility] notified of patient
discharge today. Requested Report# and Fax#
Plan: D/C to [facility] with home care by [facility]ranav [facility] _ fax# [phone]
[2024-12-08] MEDS: KEFLEX 500 MG PO (12:43)
--- NOTE | 2024-12-08 14:34 | W.DCSUMMARY ---
Discharge Summary
Discharge Data
Date of Admission: 12/05/24
Date of Discharge: 12/08/24
Total time spent discharging patient (in min): 36
-
Pending Results: No
Hospital Course
84-year-old female with past medical history of paroxysmal atrial fibrillation on Eliquis, hypertension, hyperlipidemia, COPD, former smoker, B12 deficiency, insomnia, neuropathy, osteoarthritis and diverticulosis, presented with trip and fall with
walker sustaining abrasion to the martinez of the right lower extremity. Patient came to emergency room next day and given doxycycline without improvement. She followed wound care and used Polysporin but had worsening redness and edema below the right
knee. Patient was given Vancomycin in the emergency room, but at on admission she was switched to Cefazolin. In the setting of trauma to the martinez of her right lower extremity, infectious disease was consulted. Recommendation was to continue
Cefazolin, compression with DAVID wrap, and elevation. Patient improved and she was stable for discharge on oral antibiotics. Patient received Tramadol during the hospitalization for the pain associated with the wound/cellulitis, she said it worked
well for her, and she requested some Tramadol on discharge as well.
Discharge Plan
-
Patient Disposition: Home with Home Care
Discharge Diagnosis/Procedures: Right lower extremity swelling.
Suspected right lower extremity cellulitis; improved
Recent right lower extremity trauma to martinez secondary to fall.
A-fib (paroxysmal)
Hypertension
Hyperlipidemia
Normocytic anemia
History of Vitamin B12 deficiency
COPD
History of asthmatic bronchitis with no acute exacerbation
Insomnia
Neuropathy
Osteoarthritis
Diverticulosis
Condition: Good
Diet: Low Fat, Low Cholesterol and Low Sodium
Activity Restrictions/Additional Instructions:
Cover wound with Adaptic and gauze dressing and wrapped with Margi. Apply David wrap to the foot and lower extremity. Would maintain 24 hours a day. Maintain elevation when on the couch or in bed.
Wound Care Instructions
Can shower daily then change dressing
R leg: clean with soap and water, skin prep periwound, Santyl to eschar/slough, adaptic, abd pad and margi change daily and prn drainage
David wrap to R leg knee high daily can pad forefoot under david wrap with abd pad.
mineral oil to legs daily
leg elevation when sitting
increase protein in diet
Follow up at wound care center call for an appointment.
Instructions: Cephalexin
Referrals:
Luiza Hazel MD [Family Provider, Internal Medicine] - in less than 1 week
Referral Note: Hospitalization Follow-Up
Additional Discharge Medication Instructions: Cephalexin is a new medication.
As needed Tramadol is a new medication.
Prescriptions:
New
cephalexin 500 mg Capsule
500 mg PO QID 3 Days Qty: 12 0RF
tramadol 25 mg tablet
25 mg PO [id number] PRN (Reason: Severe Pain) Qty: 7 0RF
Continued
cyanocobalamin (vitamin B-12) 1,000 MCG tablet
1,000 mcg PO DAILY
montelukast 10 MG tablet
10 mg PO QPM
cholecalciferol (vitamin D3) [Vitamin D3] 400 UNITS tablet
1,000 units PO DAILY
cyclosporine [Restasis] 10 DROPS dropperette
1 drp BOTH EYES BID
irbesartan 150 MG tablet
150 mg PO HS 0RF
diltiazem HCl 120 mg Tablet Extended Release 24 Hr
120 mg PO DAILY
Eliquis 5 mg Tablet
5 mg PO BID
PreserVision AREDS-2 250-90-40-1 mg Capsule
1 cap PO BID
biotin 2,500 mcg Capsule
5,000 mcg PO DAILY
Dupixent Syringe 300 mg/2 mL Syringe
300 mg SC Q2W
Trelegy Ellipta 200-62.5-25 mcg Blister With Device
1 inh INHALATION R DAILY
Airsupra 90-80 mcg/actuation Hfa Aerosol Inhaler
2 inh INHALATION R Q6HPRN PRN (Reason: sob)
Rx Instructions:
as a single dose; may repeat up to 6 doses per day (12 inhalations)
simvastatin
20 mg PO HS
Discharge Orders:
Discharge Patient (As Directed); Ordered 12/08/24
Ordered By: Brian Rosas
Discharge Date and Time
Discharge Date/Time: 12/08/24 15:42
Print Language: SINHALA
[2024-12-08 15:00] VITALS: BP 129/66
== END 2024-12-08 15:42 | disposition home health service (06) | DRG 603 ==
LOC: 4 WEST ACU 14:10
PROVIDERS: Clinical Nurse Specialist Family Health; Student in an Organized Health Care Education/Training Program; ADMITTING PHYSICIAN Hospitalist; ATTENDING PHYSICIAN Hospitalist; EMERGENCY PHYSICIAN Emergency Medicine; FAMILY PHYSICIAN Internal Medicine Geriatric Medicine; OTHER PHYSICIAN Internal Medicine Infectious Disease
DX: L03.115 Cellulitis of right lower limb (principal); I10 Essential (primary) hypertension; I48.0 Paroxysmal atrial fibrillation; E78.00 Pure hypercholesterolemia, unspecified; D64.9 Anemia, unspecified; E53.8 Deficiency of other specified B group vitamins; G47.00 Insomnia, unspecified; G62.9 Polyneuropathy, unspecified; Z79.01 Long term (current) use of anticoagulants; Z87.891 Personal history of nicotine dependence; J44.9 Chronic obstructive pulmonary disease, unspecified; Z79.899 Other long term (current) drug therapy; Z96.1 Presence of intraocular lens; Z98.41 Cataract extraction status, right eye; Z98.42 Cataract extraction status, left eye; Z96.652 Presence of left artificial knee joint
CPT/HCPCS: 80048; 80053; 83605; 83735; 85025; 87040; 87070; 94640; 96365; 96366; 97162; 99215; 99285

== ENCOUNTER → 2025-03-13 13:28 | Outpatient (REF) | payer MEDICARE, OTHER, SELFPAY | LOC: HWRAD 13:28 | PROVIDERS: ATTENDING PHYSICIAN Internal Medicine Geriatric Medicine | DX: M81.0 Age-related osteoporosis without current pathological fracture (principal) | CPT/HCPCS: 77080 ==